=== PATIENT | female | born 1995 | race African-American/Black ===

== ENCOUNTER 2016-09-17 02:29 | Emergency (ER) | payer OTHER ==
[2016-09-17] MEDS ORDERED: KETOROLAC 60 MG/2 ML VIAL (J1885) IM ONE (03:30)
[2016-09-17 04:03] VITALS: BP 125/69
--- NOTE | 2016-09-17 04:36 | REP ---
Clinical: Trauma . Technique: AP, lateral views of the left elbow. Findings: No acute fracture or dislocation is appreciated. Joint spaces and surrounding soft tissues appear normal. Lateral view demonstrates normal positioning to the anterior and posterior fat pads without evidence for effusion/hemarthrosis. No subcutaneous emphysema or foreign body identified. Impression: Normal left elbow radiographs. Signed by Kimo Valentine MD 09/17/2016 04:27 A
== END 2016-09-17 04:04 | disposition home or self-care (01) ==
LOC: M ED 03:18
DX: S50.02XA Contusion of left elbow, initial encounter (principal); W19.XXXA Unspecified fall, initial encounter; Y92.009 Unspecified place in unspecified non-institutional (private) residence as the place of occurrence of the external cause; Y93.89 Activity, other specified; Y99.8 Other external cause status
CPT/HCPCS: 73070; 96372; 99283; J1885